=== PATIENT | male | born 1975 | race Caucasian/White ===

== ENCOUNTER 2024-02-24 14:00 | Emergency (ER) | payer OTHER, SELFPAY ==
--- NOTE | ~2024-02-24 | CT_ITS ---
EXAMINATION: CT brain wo con DATE: 02/24/2024 16:37 INDICATION: Bilateral upper extremity paresthesias. TECHNIQUE: Computed tomography (CT) of the head was performed without intravenous contrast. The mA wa s adjusted according to patient size. Iterative reconstruction technique was employed. The dose-lengt h product was 605.33 mGy-cm. COMPARISON: None FINDINGS: There is no intracranial hemorrhage, acute infarction, or abnormal intracranial mass lesion . The ventricles are normal in size. There is mild mucosal thickening in the paranasal sinuses. The m astoid air cells are normal. The orbits are normal. IMPRESSION: 1. Normal brain. Reviewed, dictated and finalized at location E. IMPRESSION: 1. Normal brain.
--- NOTE | ~2024-02-24 | CT_ITS ---
EXAMINATION: CT cervical spine wo con DATE: 02/24/2024 15:34 INDICATION: Paresthesias in the bilateral upper extremities. TECHNIQUE: Computed tomography (CT) of the cervical spine was performed without intravenous contrast. Automated exposure control and iterative reconstruction technique were employed. The dose-length pro duct was 477.64 mGy-cm. COMPARISON: None FINDINGS: Bone alignment is normal. Vertebral body heights are normal. There is mildly decreased disc at C3-C4 and moderately decreased disc height from C4-C5 through C6-C7. The following disc levels ar e specifically discussed: C2-C3: There is mild bilateral uncovertebral joint osteoarthritis. There is mild bilateral facet join t osteoarthritis. There is mild left neural foraminal stenosis. There is no central canal stenosis. C3-C4: There is moderate bilateral uncovertebral joint osteoarthritis. There is mild bilateral facet joint osteoarthritis. There is mild bilateral neural foraminal stenosis. There is mild central canal stenosis. C4-C5: There is moderate right and mild left uncovertebral joint osteoarthritis. There is no facet danielle int osteoarthritis. There is mild bilateral neural foraminal stenosis. There is mild central canal st enosis. C5-C6: There is severe bilateral uncovertebral joint osteoarthritis. There is no facet joint osteoart hritis. There is mild bilateral neural foraminal stenosis. There is mild central canal stenosis. C6-C7: There is mild right and severe left uncovertebral joint osteoarthritis. There is mild bilatera l facet joint osteoarthritis. There is mild left neural foraminal stenosis. There is mild central can al stenosis. C7-T1: There is no uncovertebral joint osteoarthritis. There is mild bilateral facet joint osteoarthr itis. There is no neural foraminal stenosis. There is no central canal stenosis. IMPRESSION: 1. Moderate cervical spondylosis. Reviewed, dictated and finalized at location E.
[2024-02-24 14:03] VITALS: BP 157/106; PULSE 95; RESP 18; TEMP 37.2; O2SAT 96
--- NOTE | 2024-02-24 15:20 | ED_ITS ---
HPI - Neuro Symptoms/Deficit General Chief Complaint: Extremity Injury, Upper <Stacy Shafer PA-C - Last Filed: 02/24/24 15:28> Stated Complaint: Bilateral arms/hands numb & tingling x few days <Stacy Shafer PA-C - Last Filed: 02/24/24 15:28> Time Seen by Provider: 02/24/24 16:06 <Stacy Shafer PA-C - Last Filed: 02/24/24 15:28> Focused HPI: 48 y/o M presents to the ED for paresthesias to his hands x3 days. States he specifically has numbness to his L 3rd finger to the Distal phalanx. He is also reporting some paresthesias from his elbow that go to his forearm. 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 Endorses a hx of carpal tunnel. States he saw a surgeon many years ago but no interventions were performed. Denies neck pain, back pain or injury. GENERAL: Well-appearing, well-nourished, and in no acute distress. HEAD: Normocephalic, atraumatic. CHEST: Clear to auscultation. ?No respiratory distress. HEART: Regular rate and rhythm.? NEURO: ?Alert and oriented x3. Patient screened in triage and initial orders placed.? ?Additional care and disposition to be based upon?diagnostic testing and treatment. <Stacy Shafer PA-C - Last Filed: 02/24/24 15:28> Review of Systems 2 Review of Systems: All systems reviewed & are unremarkable except as noted in HPI and below <Polo Joya MD - Last Filed: 02/24/24 21:47> Exam Narrative: APPEARANCE: Well appearing, no pain, no distress, well-nourished. HEAD: normocephalic, atraumatic. EYES: PERRLA/EOMI, conjunctivae clear. NECK: Supple. No adenopathy, no masses. RESPIRATORY: Airway patent, respirations nonlabored. Clear to auscultation bilaterally, no rales, rhonchi, wheezing. CARDIOVASCULAR: Regular rate and rhythm without murmurs rubs or gallops. ABDOMINAL: Soft, nontender, nondistended, normal bowel sounds MUSCULOSKELETAL: Moves all extremities. Strength/ROM intact, No edema, No calf tenderness. NEURO: Alert. Cranial nerves II through XII intact. Good gait. Good coordination SKIN: Warm, dry. Normal Color <Polo Joya MD - Last Filed: 02/24/24 21:47> Course Vital Signs Vital signs: Vital Signs Temperature 98.9 F 02/24/24 14:03 Pulse Rate 95 02/24/24 14:03 Respiratory Rate 18 02/24/24 14:03 Blood Pressure 157/106 H 02/24/24 14:03 Pulse Oximetry 96 02/24/24 14:03 Oxygen Delivery Room Air 02/24/24 14:03 Temperature 97.6 F 02/24/24 17:44 Pulse Rate 74 02/24/24 17:44 Respiratory Rate 16 02/24/24 17:44 Blood Pressure 136/78 02/24/24 17:44 Pulse Oximetry 98 02/24/24 17:44 Oxygen Delivery Room Air 02/24/24 14:03 <Stacy Shafer PA-C - Last Filed: 02/24/24 15:28> Vital Signs Temperature 98.9 F 02/24/24 14:03 Pulse Rate 95 02/24/24 14:03 Respiratory Rate 18 02/24/24 14:03 Blood Pressure 157/106 H 02/24/24 14:03 Pulse Oximetry 96 02/24/24 14:03 Oxygen Delivery Room Air 02/24/24 14:03 Temperature 97.6 F 02/24/24 17:44 Pulse Rate 74 02/24/24 17:44 Respiratory Rate 16 02/24/24 17:44 Blood Pressure 136/78 02/24/24 17:44 Pulse Oximetry 98 02/24/24 17:44 Oxygen Delivery Room Air 02/24/24 14:03 <Polo Joya MD - Last Filed: 02/24/24 21:47> MDM - Neuro Symptoms/Deficit MDM Narrative Medical decision making narrative: 40-year-old male presents to the emergency department for evaluation of bilateral tingling of his hands. Patient does report repetitive motion at work blowing a twisting motion. Suspect lateral epicondylitis. Exam is not consistent with carpal tunnel, patient does report prior history of carpal tunnel. Patient was encouraged to have close follow-up with Orthopedics along with occupational health. patient had negative CT cervical spine negative CT of the brain. Patient was comfortable with plan for discharge and close follow- up. <Polo Joya MD - Last Filed: 02/24/24 21:47> Differential Diagnosis Differential diagnosis: Likely carpal tunnel syndrome, subarachnoid hemorrhage, peripheral neuropathy, cerebrovascular accident and transient cerebral ischemia <Polo Joya MD - Last Filed: 02/24/24 21:47> Lab Data Attestation: I reviewed the patient's lab results. <Polo Joya MD - Last Filed: 02/24/24 21:47> Result diagrams: 02/24/24 16:26 02/24/24 16:26 <Stacy Shafer PA-C - Last Filed: 02/24/24 15:28> Labs: Lab Results 02/24/24 Range/Units 16:26 WBC 7.3 (4.5-10.0) K/mm3 RBC 5.23 (4.6-6.20) M/mm3 Hgb 16.2 (14.0-18.0) g/dL Hct 47.5 (42.0-52.0) % MCV 90.8 (80-100) fl MCH 31.0 (26-34) pg MCHC 34.1 (32-36) g/dl RDW 12.0 (11.5-14.5) % Plt Count 273 (150-375) k/mm3 MPV 10.0 (7.4-10.4) fl Immature Gran % (Auto) 0.3 (0-0.5) % Neut % (Auto) 74.2 H (45.5-73.1) % Lymph % (Auto) 18.3 (18.3-44.2) % [place] % (Auto) 5.9 (2.6-8.5) % Eos % (Auto) 0.8 (0-4.4) % Baso % (Auto) 0.5 (0.2-1.2) % Lymph # (Auto) 1.34 (0.9-3.2) K/mm3 [place] # (Auto) 0.4 (0.1-0.6) K/mm3 Eos # (Auto) 0.1 (0-0.3) K/mm3 Baso # (Auto) 0.0 (0.0-0.1) K/mm3 Abs Immat Gran (auto) 0.02 (0.00-0.031) K/mm3 Absolute Neuts (auto) 5.4 (1.3-6.7) K/mm3 Absolute Nucleated RBC 0.000 (0.0-0.012) K/mm3 Nucleated RBC % 0.0 (0.0-0.2) % Sodium 140 (137-145) mmol/L Potassium 4.2 (3.4-5.0) mmol/L Chloride 107 (98-107) mmol/L Carbon Dioxide 25 (22-30) mmol/L Anion Gap 8 (4-12) mmol/L BUN 14 (9-20) mg/dL Creatinine 0.90 (0.7-1.3) mg/dL Estim Creat Clear Calc 82 ml/min Estimated GFR > 60 (59 - ) Glucose 99 (65-110) mg/dL Calcium 9.9 (8.4-10.2) mg/dL Total Bilirubin 1.2 (0.2-1.3) mg/dL AST 25 (17-59) U/L ALT 25 (6-50) U/L Alkaline Phosphatase 84 (38-126) U/L Total Protein 8.0 (6.3-8.2) g/dL Albumin 5.1 (3.5-5.1) g/dL Vitamin B12 376.0 (239-931) pg/mL Folate 10.8 (2.76->20) ng/mL <Stacy Shafer PA-C - Last Filed: 02/24/24 15:28> Lab Results 02/24/24 Range/Units 16:26 WBC 7.3 (4.5-10.0) K/mm3 RBC 5.23 (4.6-6.20) M/mm3 Hgb 16.2 (14.0-18.0) g/dL Hct 47.5 (42.0-52.0) % MCV 90.8 (80-100) fl MCH 31.0 (26-34) pg MCHC 34.1 (32-36) g/dl RDW 12.0 (11.5-14.5) % Plt Count 273 (150-375) k/mm3 MPV 10.0 (7.4-10.4) fl Immature Gran % (Auto) 0.3 (0-0.5) % Neut % (Auto) 74.2 H (45.5-73.1) % Lymph % (Auto) 18.3 (18.3-44.2) % [place] % (Auto) 5.9 (2.6-8.5) % Eos % (Auto) 0.8 (0-4.4) % Baso % (Auto) 0.5 (0.2-1.2) % Lymph # (Auto) 1.34 (0.9-3.2) K/mm3 [place] # (Auto) 0.4 (0.1-0.6) K/mm3 Eos # (Auto) 0.1 (0-0.3) K/mm3 Baso # (Auto) 0.0 (0.0-0.1) K/mm3 Abs Immat Gran (auto) 0.02 (0.00-0.031) K/mm3 Absolute Neuts (auto) 5.4 (1.3-6.7) K/mm3 Absolute Nucleated RBC 0.000 (0.0-0.012) K/mm3 Nucleated RBC % 0.0 (0.0-0.2) % Sodium 140 (137-145) mmol/L Potassium 4.2 (3.4-5.0) mmol/L Chloride 107 (98-107) mmol/L Carbon Dioxide 25 (22-30) mmol/L Anion Gap 8 (4-12) mmol/L BUN 14 (9-20) mg/dL Creatinine 0.90 (0.7-1.3) mg/dL Estim Creat Clear Calc 82 ml/min Estimated GFR > 60 (59 - ) Glucose 99 (65-110) mg/dL Calcium 9.9 (8.4-10.2) mg/dL Total Bilirubin 1.2 (0.2-1.3) mg/dL AST 25 (17-59) U/L ALT 25 (6-50) U/L Alkaline Phosphatase 84 (38-126) U/L Total Protein 8.0 (6.3-8.2) g/dL Albumin 5.1 (3.5-5.1) g/dL Vitamin B12 376.0 (239-931) pg/mL Folate 10.8 (2.76->20) ng/mL <Polo Joya MD - Last Filed: 02/24/24 21:47> Imaging Data Radiologist's impression: Impressions Cervical Spine CT 02/24/24 15:36 IMPRESSION: 1. Moderate cervical spondylosis. Head CT 02/24/24 16:37 IMPRESSION: 1. Normal brain. <Polo Joya MD - Last Filed: 02/24/24 21:47> Discharge Plan Discharge Clinical Impression: Lateral epicondylitis of both elbows <Stacy Shafer PA-C - Last Filed: 02/24/24 15:28> Patient Disposition: Home, Self-Care <Stacy Shafer PA-C - Last Filed: 02/24/24 15:28> Condition: Stable <Stacy Shafer PA-C - Last Filed: 02/24/24 15:28> Instructions: Antibiotic Form, Tennis Elbow (ED) <Stacy Shafer PA-C - Last Filed: 02/24/24 15:28> Additional Instructions: Medrol Dosepak as directed. Braces for lateral epicondylitis as directed. Have close follow-up with occupational health. You are also being provided follow-up with orthopedic surgery. If you have any worsening symptoms then please call or return to the emergency department. <Stacy Shafer PA-C - Last Filed: 02/24/24 15:28> Prescriptions: New methylprednisolone [Medrol (Zoran)] 4 mg tablets,dose pack See Rx Instructions .ROUTE .COMPLEX Qty: 21 0RF Rx Instructions: for 6 days <Stacy Shafer PA-C - Last Filed: 02/24/24 15:28> Follow-up/Referrals: PHYSICIAN,BOARD RUNNER [Primary Care Provider] - Salvador Bowens MD [Physician] - <Stacy Shafer PA-C - Last Filed: 02/24/24 15:28>
--- NOTE | 2024-02-24 15:57 | PC.NURSE ---
pt reports he has known history of carpal tunnel syndrome and has been evaluated by work comp
[2024-02-24 16:31] LABS: Basophils Percent Auto 0.5 % (0.2-1.2); Eosinophils Absolute Auto 0.1 K/mm3 (0-0.3); Eosinophils Percent Auto 0.8 % (0-4.4); Hematocrit 47.5 % (42.0-52.0); Hemoglobin 16.2 g/dL (14.0-18.0); Immature Granulocyte Absolute 0.02 K/mm3 (0.00-0.031); Immature Granulocyte Percent A 0.3 % (0-0.5); Lymphocytes Absolute Auto 1.34 K/mm3 (0.9-3.2); Lymphocytes Percent Auto 18.3 % (18.3-44.2); Mean Corpuscular HGB Conc 34.1 g/dl (32-36); Mean Corpuscular Volume 90.8 fl (80-100); Monocytes Absolute Auto 0.4 K/mm3 (0.1-0.6); Monocytes Percent Auto 5.9 % (2.6-8.5); Neutrophils Absolute Auto 5.4 K/mm3 (1.3-6.7); Neutrophils Percent Auto 74.2 % (45.5-73.1); Platelet Count Result 273 k/mm3 (150-375); Red Blood Count 5.23 M/mm3 (4.6-6.20); White Blood Count 7.3 K/mm3 (4.5-10.0)
[2024-02-24 16:34] VITALS: BP 132/80; PULSE 74; RESP 16; TEMP 36.8; O2SAT 100
[2024-02-24 16:42] LABS: Alanine Aminotransferase 25 U/L (6-50); Albumin Level 5.1 g/dL (3.5-5.1); Alkaline Phosphatase 84 U/L (38-126); Anion Gap 8 mmol/L (4-12); Aspartate Amino Transferase 25 U/L (17-59); Bilirubin,Total 1.2 mg/dL (0.2-1.3); Blood Urea Nitrogen 14 mg/dL (9-20); Calcium 9.9 mg/dL (8.4-10.2); Carbon Dioxide 25 mmol/L (22-30); Chloride 107 mmol/L (98-107); Estimated CRCL calculation 82 ml/min; Estimated Glomerular Filt Rate > 60; Glucose 99 mg/dL (65-110); Potassium 4.2 mmol/L (3.4-5.0); Sodium 140 mmol/L (137-145)
[2024-02-24 17:44] VITALS: BP 136/78; PULSE 74; RESP 16; TEMP 36.4; O2SAT 98
[2024-02-24 17:48] LABS: Folic Acid 10.8 ng/mL (2.76->20)
== END 2024-02-24 17:45 | disposition home or self-care (01) ==
PROVIDERS: Emergency Provider Emergency Medicine; Referring Provider Emergency Medicine
DX: M77.12 Lateral epicondylitis, left elbow (principal); M77.11 Lateral epicondylitis, right elbow; M47.812 Spondylosis without myelopathy or radiculopathy, cervical region
CPT/HCPCS: 36415; 70450; 72125; 80053; 82607; 82746; 85025; 99284

== ENCOUNTER 2024-06-07 07:16 | Day surgery (SDC) | payer OTHER, SELFPAY ==
[2024-05-03 15:15] VITALS: BMI 30.5
[2024-05-28 10:26] VITALS: BMI 29.7
--- NOTE | 2024-06-06 10:36 | P.PNAN_ITS ---
Anes - Initial Pre Proc Eval Procedure: Operation Date: 06/07/24 09:00 Proposed Procedures p Diagnostic Colonoscopy - Stevan Joyner MD Date/Time: 06/06/24 10:36 Surgeon: Stevan Joyner MD Pre Op Diagnosis: Family History of Colon Cancer Patient Data Age: 48 Gender: M Height: 1.7 m Weight: 86 kg Allergies Allergy/AdvReac Type Severity Reaction Status Date / Time NKDA AdvReac Mild Other Uncoded 05/28/24 10:26 Home Medications Medication Instructions Recorded Confirmed Type sodium,potassium,mag sulfates 17.5 See Rx Instructions PO .COMPLEX 05/03/24 05/28/24 Rx gram-3.13 gram-1.6 gram oral soln #354 mL (Suprep Bowel Prep Kit) olmesartan 40 mg tablet 40 mg PO DAILY #90 tabs 05/24/24 05/28/24 Rx venlafaxine 150 mg tablet,extended 150 mg PO DAILY #90 tabs 05/24/24 05/28/24 Rx release 24 hr Results Review: All pre-operative results and documents have been reviewed as part of the pre- operative evaluation. [facility] Past Medical History Medical History (Updated 06/06/24 @ 10:37 by Milo Lopez Jr., CRNA) Anxiety Benign essential hypertension BMI 30.0-30.9,adult Chewing tobacco dependence Colon cancer screening Encounter to establish care FHx: colon cancer Follow up Social History Social History Smoking status: Never smoker Smokeless tobacco user: chewing tobacco Second hand tobacco smoke exposure: No Alcohol intake: current Drinks per week: 20 Substance use: never Substance use type: does not use Do You Feel Safe in your Home?: Yes Lack of Transportation: No Lack of Food: Never True Current Housing: I Have Housing Concerned About Future Housing: No Difficulty Paying Gas/Electric Bills: No Difficulty Paying for Meds: No Currently Unemployed: No Difficulty w/ Childcare or Family Care: No Living arrangements: alone Occupation/Education: occupation Gender identity (if verbalized by the patient): Male Spiritual care concerns: No Anes - Eval Final PreProcedure Day of Procedure 06/06/24 10:36 Patient weight: overweight Results Review: All pre-operative results and documents have been reviewed as part of the pre- operative evaluation. Informed Consent: The patient's anesthetic plan and its attendant risks and benefits were discussed with the patient/family/POA. Questions were solicited and answers provided to the satisfaction of the patient/family/POA.
[2024-06-07 07:58] VITALS: BP 147/102; PULSE 84; RESP 20; TEMP 36.4; O2SAT 98; BMI 29.5
[2024-06-07] MEDS: LACTATED RINGERS 1,000 ML 150 ML IV CONT (08:04)
--- NOTE | 2024-06-07 08:24 | WPDANESEPPF ---
Anes - Initial Pre Proc Eval Procedure: Operation Date: 06/07/24 09:00 Proposed Procedures p Diagnostic Colonoscopy - Stevan Joyner MD Date/Time: 06/07/24 08:24 Surgeon: Stevan Joyner MD Pre Op Diagnosis: Family History of Colon Cancer Patient Data Age: 48 Gender: M Height: 1.7 m Weight: 85.45 kg Last Vital Signs Temp 36.4 C 06/07/24 07:58 Pulse 84 06/07/24 07:58 Resp 20 06/07/24 07:58 BP 147/102 H 06/07/24 07:58 Pulse Ox 98 06/07/24 07:58 O2 Del Method Room Air 06/07/24 07:58 Allergies Allergy/AdvReac Type Severity Reaction Status Date / Time NKDA AdvReac Mild Other Uncoded 06/07/24 07:46 Home Medications Medication Instructions Recorded Confirmed Type olmesartan 40 mg tablet 40 mg PO DAILY #90 tabs 05/24/24 05/28/24 Rx venlafaxine 150 mg tablet,extended 150 mg PO DAILY #90 tabs 05/24/24 05/28/24 Rx release 24 hr Patient hx anesthesia problems: none Family hx anesthesia problems: none Results Review: All pre-operative results and documents have been reviewed as part of the pre-operative evaluation. [facility] Past Medical History Medical History Anxiety Benign essential hypertension BMI 30.0-30.9,adult Chewing tobacco dependence Colon cancer screening Encounter to establish care FHx: colon cancer Follow up Social History Social History Smoking status: Never smoker Smokeless tobacco user: chewing tobacco Second hand tobacco smoke exposure: No Alcohol intake: current Drinks per week: 20 Substance use: never Substance use type: does not use Do You Feel Safe in your Home?: Yes Lack of Transportation: No Lack of Food: Never True Current Housing: I Have Housing Concerned About Future Housing: No Difficulty Paying Gas/Electric Bills: No Difficulty Paying for Meds: No Currently Unemployed: No Difficulty w/ Childcare or Family Care: No Living arrangements: alone Occupation/Education: occupation Gender identity (if verbalized by the patient): Male Spiritual care concerns: No Anes - Eval Final PreProcedure Day of Procedure 06/07/24 08:24 Patient weight: overweight Heart: regular rate and rhythm Lungs: clear to auscultation Airway: Mallampati scale class II Neurological: alert and oriented Last oral intake: >/= 8 hours ASA classification: II Emergent: no Anesthetic plan: proceed Anesthesia type and monitoring: general GIVS and standard monitoring Results Review: All pre-operative results and documents have been reviewed as part of the pre-operative evaluation. Informed Consent: The patient's anesthetic plan and its attendant risks and benefits were discussed with the patient/family/POA. Questions were solicited and answers provided to the satisfaction of the patient/family/POA.
[2024-06-07] MEDS: FAMOTIDINE 20 MG/2 ML VIAL IV PUSH (08:34)
[2024-06-07] MEDS: ONDANSETRON INJ 4 MG/2 ML VIAL IV PUSH (08:34)
--- NOTE | 2024-06-07 08:51 | PM.HPGS ---
History of Present Illness History of Present Illness Consent: Risks, benefits, and alternatives have been discussed and questions answered. Patient agrees to proceed with procedure. Chief complaint: Family History of Colon Cancer Narrative: Mendoza Figueroa is a 48 year old male referred for colonoscopy. Patient's father was found to have colon cancer. Patient's current weight appetite and bowel movements are normal. Patient denies abdominal pain. He has had no bleeding. Patient presents today for screening exam. Review of Systems Review of Systems: All systems reviewed & are unremarkable except as noted in HPI and below PMFSH Past Medical History Medical History Anxiety Benign essential hypertension BMI 30.0-30.9,adult Chewing tobacco dependence Colon cancer screening Encounter to establish care FHx: colon cancer Follow up Social History Social History Smoking status: Never smoker Smokeless tobacco user: chewing tobacco Second hand tobacco smoke exposure: No Alcohol intake: current Drinks per week: 20 Substance use: never Substance use type: does not use Do You Feel Safe in your Home?: Yes Lack of Transportation: No Lack of Food: Never True Current Housing: I Have Housing Concerned About Future Housing: No Difficulty Paying Gas/Electric Bills: No Difficulty Paying for Meds: No Currently Unemployed: No Difficulty w/ Childcare or Family Care: No Living arrangements: alone Occupation/Education: occupation Gender identity (if verbalized by the patient): Male Spiritual care concerns: No Meds Home Medications and Allergies Home Medications Medication Instructions Recorded Confirmed Type olmesartan 40 mg tablet 40 mg PO DAILY #90 tabs 05/24/24 05/28/24 Rx venlafaxine 150 mg tablet,extended 150 mg PO DAILY #90 tabs 05/24/24 05/28/24 Rx release 24 hr Allergies Allergy/AdvReac Type Severity Reaction Status Date / Time NKDA AdvReac Mild Other Uncoded 06/07/24 07:46 Vital Signs Vital Signs - 24 hr 06/07/24 07:58 Temperature 97.6 F Pulse Rate 84 Respiratory Rate 20 Blood Pressure 147/102 H Pulse Oximetry 98 Oxygen Delivery Room Air Exam Narrative: Physical exam reveals patient vital signs stable. Exam is unremarkable. Patient is anicteric. Lungs are clear to auscultation and without murmur or extra sounds. Abdomen bowel sounds are present soft nontender with no organomegaly. Digital external rectal exam is normal. Assessment and Plan Assessment and plan (1) FHx: colon cancer: Code(s): Z80.0 - Family history of malignant neoplasm of digestive organs Status: Acute Assessment and Plan: Patient's father had colon cancer. Plan for screening colonoscopy now and consider this at 5 year intervals.
[2024-06-07 09:23] VITALS: BP 133/91; PULSE 87; RESP 14; O2SAT 98
[2024-06-07 09:33] VITALS: BP 135/89; PULSE 86; RESP 15; O2SAT 100
[2024-06-07 09:43] VITALS: BP 140/98; PULSE 71; RESP 15; O2SAT 99
--- NOTE | 2024-06-07 09:59 | WPDANESPN ---
Anes - Prog Note Post-Op Date/Time: 06/07/24 09:59 Cardiovascular status: normal Respiratory status: normal Airway patency: baseline Mental status: baseline Post-Op hydration status: normal Vital Signs: Last Vital Signs Temp 36.4 C 06/07/24 07:58 Pulse 71 06/07/24 09:43 Resp 15 06/07/24 09:43 BP 140/98 H 06/07/24 09:43 Pulse Ox 99 06/07/24 09:43 O2 Del Method Room Air 06/07/24 09:43 Pain Score (VAS): 0/10 I/O: Intake & Output 06/06/24 06/07/24 06/07/24 23:59 07:59 15:59 Intake Total 900 Balance 900 Patient Feedback: Patient satisfied with anesthetic care.
== END 2024-06-07 09:54 | disposition home or self-care (01) ==
PROVIDERS: PCP Internal Medicine; Visit Provider Internal Medicine Gastroenterology
PROC: 0DJD8ZZ Inspection of Lower Intestinal Tract, Via Natural or Artificial Opening Endoscopic (ICD-10-PCS; CPT 45378; principal; 2024-06-07 09:00)
DX: Z80.0 Family history of malignant neoplasm of digestive organs (principal); K64.8 Other hemorrhoids
CPT/HCPCS: 45378

== ENCOUNTER 2025-07-16 15:23 | Outpatient (CLI) | payer OTHER, SELFPAY ==
--- NOTE | ~2025-07-16 | US_ITS ---
EXAMINATION: US scrotum doppler DATE: 07/16/2025 15:51 INDICATION: Left testicular pain TECHNIQUE: Testicular sonogram utilizing grayscale and Doppler COMPARISON: None. FINDINGS: The right testis measures 4.3 x 3.7 x 2.1 cm. The left testis measures 3.6 x 3.2 x 2.2 cm. Symmetric normal grayscale appearance to both testes. There is normal vascular flow to both testes. The right epididymis is normal with normal vascular flow. 9 mm anechoic left epididymal cyst. The left epididymis is otherwise normal with normal vascular flow. There is no varicocele or hydrocele. IMPRESSION: 1. 9 mm left epididymal cyst. Otherwise normal scrotal ultrasound. Reviewed, dictated and finalized at location A.
== END 2025-07-16 15:24 | disposition home or self-care (01) ==
LOC: MICIMG 15:23
PROVIDERS: PCP Internal Medicine; Visit Provider Internal Medicine
DX: N50.812 Left testicular pain (principal); N50.3 Cyst of epididymis
CPT/HCPCS: 76870; 93976

== ENCOUNTER 2025-07-29 09:28 | Outpatient (CLI) | payer OTHER, SELFPAY ==
--- NOTE | ~2025-07-29 | XR_ITS ---
EXAMINATION: XR pelvis min 3V, 07/29/2025 9:33 CDT HISTORY: M54.50 - Low back pain, unspecified COMPARISON: No comparisons available. Findings: No acute fracture or malalignment. No significant degenerative changes. Soft tissues unremarkable. Impression: No acute fracture or malalignment. Reviewed, dictated and finalized at location A. Impression: No acute fracture or malalignment.
--- NOTE | ~2025-07-29 | XR_ITS ---
XR lumbar spine 2-3V Indication: M54.50 - Low back pain, unspecified Comparison: None Findings: The vertebral heights are intact. No fracture or subluxation. Moderate loss of disc at L5-S1. Soft tissues unremarkable Impression: No acute abnormality. Reviewed, dictated and finalized at location A. Impression: No acute abnormality.
--- NOTE | ~2025-07-29 | XR_ITS ---
XR sacroiliac joints min 3V 07/29/2025 10:03 Indication: Low back pain Procedure: 3 views of the sacroiliac joints Comparison: No prior studies for comparison. Findings: Sacroiliac joints within normal limits without significant degenerative change, ankylosis or erosion. Sacral foramen are symmetric. No fracture or traumatic malalignment. Impression: 1: No significant abnormality of the sacroiliac joints. Reviewed, dictated and finalized at location O. Impression: 1: No significant abnormality of the sacroiliac joints.
== END 2025-07-29 09:29 | disposition home or self-care (01) ==
LOC: MICIMG 09:29
PROVIDERS: PCP Internal Medicine; Visit Provider Internal Medicine
DX: M54.50 Low back pain, unspecified (principal); M25.559 Pain in unspecified hip; M54.30 Sciatica, unspecified side; R10.9 Unspecified abdominal pain
CPT/HCPCS: 72100; 72190; 72202